=== PATIENT | male | born 1990 | race Caucasian/White ===

== ENCOUNTER 2024-03-02 09:06 | Emergency (ER) | payer SELFPAY ==
[~2024-03-02] VITALS: Ht 175.3 cm; Wt 101.0 kg
[2024-03-02 09:10] VITALS: O2SAT 98
[2024-03-02 09:33] LABS: BASOPHILS % 0.5 % (0.0-2.0); DIFFERENTIAL COMMENT 0; EOSINOPHILS % 1.4 % (0.0-5.0); HEMATOCRIT. 44.7 % (42.0-52.0); HEMOGLOBIN. 15.2 g/dL (14.0-18.0); LYMPHOCYTES % 45.2 % (20.0-50.0); MEAN CORPUSCULAR HEMOGLOBIN 26.8 pg (28.0-32.0); MEAN CORPUSCULAR VOLUME 78.8 fL (80.0-94.0); MEAN PLATELET VOLUME 8.2 fl (7.4-10.4); MONOCYTES % 4.9 % (2.0-8.0); PLATELET 267 x1000/uL (130-400); RED BLOOD CELL COUNT 5.67 mill/uL (4.7-6.1); RED CELL DISTRIBUTION WIDTH 14.3 % (11.6-14.6); WHITE BLOOD COUNT 8.2 x1000/uL (4.5-11.0)
[2024-03-02 09:49] LABS: CHLORIDE 101 mEq/L (98-107); SODIUM 139 mEq/L (136-145)
[2024-03-02 09:50] LABS: CALCIUM 8.2 mg/dL (8.7-10.4)
[2024-03-02 09:55] LABS: CREATININE 0.8 mg/dL (0.6-1.3); GLUCOSE 110 mg/dL (70-105); UREA NITROGEN BLOOD 10 mg/dL (9-23)
[2024-03-02 09:57] LABS: ALANINE AMINOTRANSFERASE 55 IU/L (10-49); ALBUMIN 4.7 g/dL (3.2-4.8); ASPARTATE AMINOTRANSFERASE 63 IU/L (<34); BILIRUBIN DIRECT 0.2 mg/dL (<=3.0)
[2024-03-02 09:58] LABS: BILIRUBIN TOTAL 0.5 mg/dL (0.1-1.0); PROTEIN TOTAL 7.6 g/dL (6.0-8.3)
[2024-03-02 10:52] LABS: CARBON DIOXIDE 22 mEq/L (21-32)
[2024-03-02 10:54] LABS: CLARITY URINE CLEAR (CLEAR); COLOR URINE YELLOW (YELLOW); GLUCOSE URINE NEGATIVE (NEGATIVE); KETONES URINE 1+ (NEGATIVE); LEUKOCYTE ESTERASE URINE NEGATIVE (NEGATIVE); NITRITE URINE NEGATIVE (NEGATIVE); OCCULT BLOOD URINE NEGATIVE (NEGATIVE); PROTEIN URINE 2+ (NEGATIVE); SPECIFIC GRAVITY URINE 1.024 (1.005-1.030); UROBILINOGEN URINE 0.2 E.U./dL (0.2-1.0)
[2024-03-02 11:08] LABS: ETHANOL BLOOD 407 mg/dL (<10)
[2024-03-02 11:23] LABS: MUCUS URINE TRACE /lpf (NONE/TRACE); SQUAMOUS EPITHELIAL CELL URINE 1+ /lpf (RARE/1+)
[2024-03-02 11:24] LABS: BACTERIA URINE TRACE
[2024-03-02 11:25] LABS: RBC URINE 0-2 /hpf (0-2); WBC URINE 0-2 /hpf (0-2)
[2024-03-02] MEDS: CHLORDIAZEPOXIDE 25MG CAPSULE PO ONE (12:07)
[2024-03-02 13:46] VITALS: BP 157/80; PULSE 107; RESP 15; TEMP 98.6
== END 2024-03-02 13:50 | disposition home or self-care (01) ==
LOC: ER 09:06
DX: F10.129 Alcohol abuse with intoxication, unspecified (principal); Y90.8 Blood alcohol level of 240 mg/100 ml or more
CPT/HCPCS: 36415; 80048; 80076; 80320; 81003; 85025; 99283; G0480

== ENCOUNTER 2024-04-18 06:26 | Emergency (ER) | payer MEDICAID ==
[~2024-04-18] VITALS: Ht 177.8 cm; Wt 105.0 kg
[2024-04-18 06:44] VITALS: O2SAT 98
[2024-04-18 07:44] LABS: BASOPHILS % 0.8 % (0.0-2.0); DIFFERENTIAL COMMENT 0; EOSINOPHILS % 0.2 % (0.0-5.0); HEMATOCRIT. 42.5 % (42.0-52.0); HEMOGLOBIN. 14.2 g/dL (14.0-18.0); LYMPHOCYTES % 32.1 % (20.0-50.0); MEAN CORPUSCULAR HGB CONC 33.5 g/dL (31.0-37.0); MEAN CORPUSCULAR VOLUME 77.7 fL (80.0-94.0); MONOCYTES % 7.9 % (2.0-8.0); PLATELET 267 x1000/uL (130-400); RED BLOOD CELL COUNT 5.47 mill/uL (4.7-6.1); RED CELL DISTRIBUTION WIDTH 14.1 % (11.6-14.6); WHITE BLOOD COUNT 7.9 x1000/uL (4.5-11.0)
[2024-04-18 07:54] LABS: CHLORIDE 97 mEq/L (98-107); POTASSIUM 3.9 mEq/L (3.5-5.1); SODIUM 135 mEq/L (136-145)
[2024-04-18 07:55] LABS: CALCIUM 9.6 mg/dL (8.7-10.4); CARBON DIOXIDE 23 mEq/L (21-32)
[2024-04-18 08:00] LABS: CREATININE 0.8 mg/dL (0.6-1.3); GLUCOSE 117 mg/dL (70-105); UREA NITROGEN BLOOD 10 mg/dL (9-23)
[2024-04-18 08:01] LABS: ETHANOL BLOOD 196 mg/dL (<10)
[2024-04-18 08:02] LABS: ALANINE AMINOTRANSFERASE 80 IU/L (10-49); ALBUMIN 5.3 g/dL (3.2-4.8); ASPARTATE AMINOTRANSFERASE 129 IU/L (<34); BILIRUBIN TOTAL 0.5 mg/dL (0.1-1.0)
[2024-04-18 08:03] LABS: PROTEIN TOTAL 7.8 g/dL (6.0-8.3)
[2024-04-18] MEDS: SODIUM CHLORIDE 0.9% 1,000 ML IV ONE (08:29)
[2024-04-18] MEDS: LORAZEPAM 2MG/ML INJ IV ONE (08:29)
[2024-04-18] MEDS: ONDANSETRON HCL 4MG/2ML INJ IV STA (08:29)
[2024-04-18] MEDS ORDERED: CHLO25CA10 MT ×2 (09:40→10:07)
[2024-04-18] MEDS ORDERED: GABA800T97 MT (10:07)
[2024-04-18 10:42] VITALS: BP 135/70; PULSE 98; RESP 14; TEMP 98.1
== END 2024-04-18 11:49 | disposition home or self-care (01) ==
LOC: ER 06:44
DX: F10.10 Alcohol abuse, uncomplicated (principal); F41.9 Anxiety disorder, unspecified; Y90.6 Blood alcohol level of 120-199 mg/100 ml
CPT/HCPCS: 80053; 80320; 83690; 85025; 36415; 96361; 96374; 96375; 99284; J2060; J2405; J7030; Z7610 ×4; G0480

== ENCOUNTER 2024-06-06 05:09 | Emergency (ER) | payer MEDICAID ==
[~2024-06-06] VITALS: Ht 180.3 cm; Wt 124.6 kg
[~2024-06-06 05:09] MED LIST: CHLO25CA10 MT; GABA800T97 MT
[2024-06-06 07:10] LABS: BASOPHILS % 1.1 % (0.0-2.0); DIFFERENTIAL COMMENT 0; EOSINOPHILS % 1.6 % (0.0-5.0); HEMATOCRIT. 42.6 % (42.0-52.0); HEMOGLOBIN. 14.1 g/dL (14.0-18.0); LYMPHOCYTES % 37.5 % (20.0-50.0); MEAN CORPUSCULAR HGB CONC 33.1 g/dL (31.0-37.0); MEAN CORPUSCULAR VOLUME 78.3 fL (80.0-94.0); MEAN PLATELET VOLUME 8.4 fl (7.4-10.4); MONOCYTES % 7.1 % (2.0-8.0); NEUTROPHILS % 52.7 % (40.0-76.0); PLATELET 261 x1000/uL (130-400); RED BLOOD CELL COUNT 5.44 mill/uL (4.7-6.1); RED CELL DISTRIBUTION WIDTH 14.8 % (11.6-14.6); WHITE BLOOD COUNT 5.7 x1000/uL (4.5-11.0)
[2024-06-06] MEDS: ONDANSETRON 4MG ODT PO STA (07:11)
[2024-06-06] MEDS: HYDROXYZINE 25MG TABLET PO ONE (07:11)
[2024-06-06] MEDS: KETOROLAC 30MG/ML VIAL IM STA (07:11)
[2024-06-06 07:19] LABS: CHLORIDE 104 mEq/L (98-107); POTASSIUM 3.9 mEq/L (3.5-5.1); SODIUM 141 mEq/L (136-145)
[2024-06-06 07:20] LABS: CARBON DIOXIDE 26 mEq/L (21-32)
[2024-06-06 07:21] LABS: CALCIUM 9.1 mg/dL (8.7-10.4)
[2024-06-06 07:25] LABS: CREATININE 0.7 mg/dL (0.6-1.3)
[2024-06-06 07:26] LABS: ETHANOL BLOOD 208 mg/dL (<10); GLUCOSE 118 mg/dL (70-105); UREA NITROGEN BLOOD 9 mg/dL (9-23)
[2024-06-06 09:29] VITALS: BP 131/92; PULSE 95; RESP 18; TEMP 97.9
== END 2024-06-06 08:50 | disposition home or self-care (01) ==
LOC: ER 05:21
DX: F10.129 Alcohol abuse with intoxication, unspecified (principal); Y90.8 Blood alcohol level of 240 mg/100 ml or more
CPT/HCPCS: 80048; 80320; 85025; 36415; 96372; 99283; Q0162; J1885; G0480

== ENCOUNTER 2025-01-30 15:05 | Emergency (ER) | payer MEDICAID ==
[~2025-01-30] VITALS: Ht 180.3 cm; Wt 120.0 kg
[2025-01-30 15:15] VITALS: O2SAT 98
[2025-01-30] MEDS: CHLORDIAZEPOXIDE 25MG CAPSULE PO ONE (15:51)
[2025-01-30] MEDS: SODIUM CHLORIDE 0.9% 1,000 ML IV ONE (15:51)
[2025-01-30 16:16] LABS: BASOPHILS % 0.4 % (0.0-2.0); DIFFERENTIAL COMMENT 0; HEMATOCRIT. 43.3 % (42.0-52.0); HEMOGLOBIN. 14.3 g/dL (14.0-18.0); LYMPHOCYTES % 15.1 % (20.0-50.0); MEAN CORPUSCULAR HEMOGLOBIN 25.4 pg (28.0-32.0); MEAN CORPUSCULAR HGB CONC 33.1 g/dL (31.0-37.0); MEAN CORPUSCULAR VOLUME 76.9 fL (80.0-94.0); MEAN PLATELET VOLUME 8.4 fl (7.4-10.4); MONOCYTES % 6.9 % (2.0-8.0); NEUTROPHILS % 77.6 % (40.0-76.0); PLATELET 155 x1000/uL (130-400); RED BLOOD CELL COUNT 5.64 mill/uL (4.7-6.1); RED CELL DISTRIBUTION WIDTH 14.8 % (11.6-14.6); WHITE BLOOD COUNT 7.4 x1000/uL (4.5-11.0)
[2025-01-30 16:19] LABS: CHLORIDE 95 mEq/L (98-107); POTASSIUM 3.2 mEq/L (3.5-5.1); SODIUM 135 mEq/L (136-145)
[2025-01-30 16:20] LABS: CALCIUM 7.6 mg/dL (8.7-10.4); CARBON DIOXIDE 25 mEq/L (21-32)
[2025-01-30 16:25] LABS: CREATININE 0.6 mg/dL (0.6-1.3); GLUCOSE 143 mg/dL (70-105); UREA NITROGEN BLOOD 13 mg/dL (9-23)
[2025-01-30 16:37] LABS: *AMPHETAMINES SCREEN URINE NEGATIVE (NEGATIVE); *BARBITURATES SCREEN URINE NEGATIVE (NEGATIVE); *BENZODIAZEPINES SCREEN URINE NEGATIVE (NEGATIVE); *COCAINE SCREEN URINE NEGATIVE (NEGATIVE)
[2025-01-30 16:38] LABS: CANNABINOID URINE SCREEN PRESUMPTIVE POSITIVE (NEGATIVE); ECSTASY MDMA SCREEN URINE NEGATIVE (NEGATIVE); METHADONE URINE SCREEN NEGATIVE (NEGATIVE); OPIATES URINE SCREEN NEGATIVE (NEGATIVE); PHENCYCLIDINE URINE SCREEN NEGATIVE (NEGATIVE)
[2025-01-30 16:40] LABS: ETHANOL BLOOD 422 mg/dL (<10)
[2025-01-30 16:42] VITALS: BP 152/100; PULSE 125; RESP 18; TEMP 36.6; O2SAT 97
== END 2025-01-30 17:50 | disposition left against medical advice (07) ==
LOC: ER 15:05
DX: F10.129 Alcohol abuse with intoxication, unspecified (principal); Y90.9 Presence of alcohol in blood, level not specified
CPT/HCPCS: 80305; 80048; 80320; 85025; 36415; 93005; 96360; 99284; J7030; G0480